=== PATIENT | female | born 1950 | race Caucasian/White ===

== ENCOUNTER 2024-01-26 05:59 | Emergency (ER) | payer MEDICARE, BC ==
[~2024-01-26] VITALS: Ht 154.9 cm; Wt 98.8 kg
[~2024-01-26 05:59] MED LIST: ALEVE220 MG PO; ASPIRIN EC325 MG PO; ATENOLOL-CHLOR1 EACH PO; ATENOLOL25 MG PO; CLONAZEPAM0.5 M1 SL; DILAUDID4 MG PO; MIRAPEX0.5 MG PO; OXYCODONE HCL E10 MG PO
[2024-01-26] MEDS ORDERED: PHENTERMINE H37.5 M1 PO (06:10)
[2024-01-26] MEDS ORDERED: GABAPENTIN400 MG PO (06:10)
[2024-01-26] MEDS ORDERED: METFORMIN HCL500 M1 PO (06:10)
[2024-01-26] MEDS ORDERED: PROPRANOLOL HCL20 MG PO ×2 (06:10→07:18)
[2024-01-26 06:19] LABS: BASOPHILS 0.3 % (0-2); EOSINOPHILS 3.1 % (0-6); HEMATOCRIT 40.2 % (35.0-50.0); LYMPHOCYTES 11.9 % (24-44); MCH 32.6 (27-36); MCHC 34.9 g/dl (30-36); MCV 93.3 fl (81-99); NEUTROPHILS 74.7 % (39-80); PLATELET COUNT 90 K/uL (140-440); RBC 4.31 M/ul (4.3-5.7); RDW 13.8 (10.5-15.0)
[2024-01-26] MEDS ORDERED: METOPROLOL TARTRATE 5 MG/5 ML VIAL IV ONE (06:30)
[2024-01-26 06:44] LABS: ALBUMIN 3.5 g/dL (3.4-5.0); ALBUMIN/GLOBULIN RATIO 0.83 (1.1-2.4); ANION GAP 15.6 (7-21); BILIRUBIN, TOTAL 1.2 ng/dL (0.2-1.0); BUN/CREATININE RATIO 18.6 (6.0-28.6); CALCIUM 9.2 mg/dL (8.5-10.1); CREATININE, SERUM 0.86 mg/dL (0.55-1.02); MAGNESIUM 1.6 mg/dL (1.8-2.4); POTASSIUM 3.6 mmol/L (3.5-5.1); PROTEIN, TOTAL 7.7 g/dL (6.4-8.2); TSH, 3RD GENERATION 4.962 uIU/mL (0.358-3.740)
[2024-01-26] MEDS ORDERED: PROPRANOLOL HCL 20 MG TAB PO ONE (06:45)
[2024-01-26] MEDS ORDERED: MAGNESIUM SULFATE 2 GM/50 ML BAG IV ONE (07:15)
[2024-01-26 08:17] VITALS: BP 146/91
--- NOTE | 2024-01-27 19:38 | EKG ---
[facility] [address] [place] [address] Signed Sinus tachycardia Otherwise normal ECG When compared with ECG of 21-JAN-2021 09:37, Vent. rate has increased BY 39 BPM Nonspecific T wave abnormality no longer evident in Anterior leads Confirmed by Sukhdeep Ronquillo MD ([id number]) on 01/27/2024 7:38:04 PM Electronically Signed By: SUKHDEEP RONQUILLO MD 01/27/24 193 PATIENT NAME: SURYAGABRIELLETAB TRAN Electrocardiogram DATE OF : 54 PHYSICIAN: SUKHDEEP RONQUILLO MD REPORT #: [id number] REPORT IS CONFIDENTIAL AND NOT TO BE RELEASED WITHOUT AUTHORIZATION
== END 2024-01-26 08:17 | disposition home or self-care (01) ==
LOC: ED 05:59
PROVIDERS: Family Medicine
DX: R00.2 Palpitations (principal); E83.42 Hypomagnesemia; F17.200 Nicotine dependence, unspecified, uncomplicated; Z96.659 Presence of unspecified artificial knee joint; Z79.899 Other long term (current) drug therapy; Z79.84 Long term (current) use of oral hypoglycemic drugs
CPT/HCPCS: 36415; 80053; 83735; 84443; 84484; 85025; 93005; 93010; 96365; 99285-25; J3475

== ENCOUNTER 2024-09-11 11:45 | Emergency (ER) | payer MEDICARE, BC ==
[~2024-09-11] VITALS: Ht 154.9 cm; Wt 98.0 kg
--- NOTE | ~2024-09-11 | EKG ---
[facility] [address] [facility] [place], [place] [address] Draft EK completed, results pending confirmation PATIENT NAME: GABRIELLE LONDON Electrocardiogram DATE OF : 54 PHYSICIAN: PRELIMINARY REPORT #: [id number] REPORT IS CONFIDENTIAL AND NOT TO BE RELEASED WITHOUT AUTHORIZATION
[~2024-09-11 11:45] MED LIST changes: +GABAPENTIN400 MG PO; +METFORMIN HCL500 M1 PO; +PHENTERMINE H37.5 M1 PO; +PROPRANOLOL HCL20 MG PO
[2024-09-11] MEDS ORDERED: ALBUTEROL/IPRATROPIUM 3 ML NEB INH PRN (12:00)
[2024-09-11 12:10] LABS: BASOPHILS 1.1 % (0.1-1.2); EOSINOPHILS 2.7 % (0.7-5.8); LYMPHOCYTES 9.2 % (19.3-51.7); MCH 31.0 PG (25.6-32.2); MCHC 33.9 g/dL (32.2-35.5); MCV 91.4 fL (79.4-94.8); MONOCYTES 8.0 % (4.7-12.5); NEUTROPHILS 78.1 % (34.0-71.1); RBC 4.29 M/uL (3.93-5.22)
[2024-09-11] MEDS ORDERED: TYLENOL EXTRA500 MG PO (12:27)
[2024-09-11 12:34] LABS: ALT (SGPT) 25.0 U/L (14-59); AST (SGOT) 34.0 U/L (15-37); GLOMERULAR FILTRATION RATE,EST 85.0 mL/min (>60); PROTEIN, TOTAL 7.4 g/dL (6.4-8.2); UREA NITROGEN 16.0 mg/dL (7-18)
[2024-09-11 14:42] VITALS: BP 123/70
--- NOTE | 2024-09-12 20:27 | EKG ---
[facility] [address] [place] [address] Signed Sinus bradycardia Otherwise normal ECG When compared with ECG of 26-JAN-2024 06:09, Vent. rate has decreased Confirmed by Luis Galvez MD () on 09/12/2024 8:27:23 PM Electronically Signed By: LUIS GALVEZ MD 09/12/242026 PATIENT NAME: GABRIELLE LONDON Electrocardiogram DATE OF : 54 PHYSICIAN: LUIS GALVEZ MD REPORT #: [id number] REPORT IS CONFIDENTIAL AND NOT TO BE RELEASED WITHOUT AUTHORIZATION
== END 2024-09-11 14:44 | disposition home or self-care (01) ==
LOC: ED 11:45
PROVIDERS: Emergency Medicine
DX: J90 Pleural effusion, not elsewhere classified (principal); F17.200 Nicotine dependence, unspecified, uncomplicated; Z79.84 Long term (current) use of oral hypoglycemic drugs; Z79.899 Other long term (current) drug therapy; Z88.8 Allergy status to other drugs, medicaments and biological substances
CPT/HCPCS: 36415; 71045; 80053; 83735; 83880; 84484; 85025; 93005; 93010; 94640; 99285-25

== ENCOUNTER 2024-10-09 17:52 | Emergency (ER) | payer MEDICARE, BC ==
[~2024-10-09] VITALS: Ht 154.9 cm; Wt 88.0 kg
[~2024-10-09 17:52] MED LIST changes: +ARTHRITIS PAIN650 M3 PO; +PRAMIPEXOLE DI0.5 MG PO; +VENTOLIN HFA18 GM INH
--- OUTSIDE RECORDS SUMMARY | 2024-10-09 17:59 | XMS ---
PreManage Notification: GABRIELLE LONDON Security Adapted Physical Education Aide Events No recent Security Events currently on file CRITERIA MET - [facility] - 2 Visits in 30 Days CARE PROVIDERS MARIA INES CHUN Internal Medicine Current PHONE: [phone] Wendy has no Care Guidelines for this patient. Dana VISIT COUNT (12 MO.) 4 [facility] TOTAL 4 NOTE: Visits indicate total known visits. ED/UCC VISIT TRACKING (12 MO.) 10/09/2024 17:52 [facility] TYPE: Emergency COMPLAINT: - SOB 09/25/2024 10:41 [facility] TYPE: Emergency COMPLAINT: - SHORTNESS OF BREATH DIAGNOSES: - Acute bronchospasm - Allergy status to other anti-infective agents - nursing home (current) use of oral hypoglycemic drugs - Nicotine dependence, cigarettes, uncomplicated - Nicotine dependence, unspecified, uncomplicated - Other long term acute care registered nurse (current) drug therapy - Shortness of breath - Unspecified cirrhosis of liver 09/11/2024 11:46 [facility] TYPE: Emergency COMPLAINT: - SHORTNESS OF BREATH DIAGNOSES: - Allergy status to other drugs, medicaments and biological substances - nursing home (current) use of oral hypoglycemic drugs - Nicotine dependence, unspecified, uncomplicated - Other snf (current) drug therapy - Pleural effusion, not elsewhere classified - Shortness of breath 01/26/2024 06:00 [facility] TYPE: Emergency COMPLAINT: - HEART RATE ISSUES DIAGNOSES: - Hypomagnesemia - nursing home (current) use of oral hypoglycemic drugs - Nicotine dependence, unspecified, uncomplicated - Other long term acute care registered nurse (current) drug therapy - Palpitations - Presence of unspecified artificial knee joint INPATIENT VISIT TRACKING (12 MO.) No inpatient visits to display in this time frame [email or web address]
[2024-10-09 18:30] VITALS: BP 152/100
== END 2024-10-09 18:52 | disposition home or self-care (01) ==
LOC: ED 17:52
DX: J90 Pleural effusion, not elsewhere classified (principal); F17.200 Nicotine dependence, unspecified, uncomplicated; Z79.84 Long term (current) use of oral hypoglycemic drugs; Z88.8 Allergy status to other drugs, medicaments and biological substances
CPT/HCPCS: 71045; 99284-25

== ENCOUNTER 2024-10-11 12:05 | Inpatient (IN) | payer MEDICARE, BC ==
[2024-10-11] VITALS (11 sets, daily range): BP systolic 86–122; BP diastolic 55–88
[~2024-10-11] VITALS: Ht 154.9 cm; Wt 94.5 kg
--- OUTSIDE RECORDS SUMMARY | 2024-10-11 12:10 | XMS ---
PreManage Notification: GABRIELLE LONDON Security Certified Adapted Physical Educator Events No recent Security Events currently on file CRITERIA MET - [facility] - 2 Visits in 30 Days CARE PROVIDERS MARIA INES CHUN Internal Medicine Current PHONE: [phone] Wendy has no Care Guidelines for this patient. Dana VISIT COUNT (12 MO.) 5 [facility] TOTAL 5 NOTE: Visits indicate total known visits. 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 - Nicotine dependence, cigarettes, uncomplicated - Nicotine dependence, unspecified, uncomplicated - Other fdc (current) drug therapy - Shortness of breath - Unspecified cirrhosis of liver 09/11/2024 11:46 [facility] TYPE: Emergency COMPLAINT: - SHORTNESS OF BREATH DIAGNOSES: - Allergy status to other drugs, medicaments and biological substances - prison (current) use of oral hypoglycemic drugs - Nicotine dependence, unspecified, uncomplicated - Other intermission coordinator (current) drug therapy - Pleural effusion, not elsewhere classified - Shortness of breath 01/26/2024 06:00 [facility] TYPE: Emergency COMPLAINT: - HEART RATE ISSUES DIAGNOSES: - Hypomagnesemia - prison (current) use of oral hypoglycemic drugs - Nicotine dependence, unspecified, uncomplicated - Other intermission coordinator (current) drug therapy - Palpitations - Presence of unspecified artificial knee joint INPATIENT VISIT TRACKING (12 MO.) No inpatient visits to display in this time frame [email or web address]
[2024-10-11 12:27] LABS: BASOPHILS 0.8 % (0.1-1.2); EOSINOPHILS 1.4 % (0.7-5.8); LYMPHOCYTES 9.4 % (19.3-51.7); MCH 31.2 PG (25.6-32.2); MCHC 34.9 g/dL (32.2-35.5); MCV 89.4 fL (79.4-94.8); MONOCYTES 9.3 % (4.7-12.5); NEUTROPHILS 78.7 % (34.0-71.1); RBC 4.81 M/uL (3.93-5.22)
[2024-10-11 12:39] LABS: INR 1.14 (0.80-1.30); PROTIME 14.1 Sec (11.2-14.2)
[2024-10-11 12:52] LABS: ALT (SGPT) 27.0 U/L (14-59); AST (SGOT) 37.0 U/L (15-37); GLOMERULAR FILTRATION RATE,EST 96.0 mL/min (>60); PROTEIN, TOTAL 7.3 g/dL (6.4-8.2); UREA NITROGEN 18.0 mg/dL (7-18)
[2024-10-11] MEDS ORDERED: PRAMIPEXOLE DIHYDROCHLORIDE 1 MG TAB PO ONE (16:00)
[2024-10-11] MEDS ORDERED: PRAMIPEXOLE DIHYDROCHLORIDE 0.25 MG TAB PO ONE (16:15)
[2024-10-11] MEDS ORDERED: GLUCAGON,HUMAN RECOMBINANT 1 MG/ML VIAL SUB-Q PRN (16:30)
[2024-10-11] MEDS ORDERED: DEXTROSE 5% 1,000 ML IV PRN (16:30)
[2024-10-11] MEDS ORDERED: DEXTROSE 50% 50 ML SYR IV PRN ×2 (16:30)
[2024-10-11] MEDS ORDERED: SODIUM CHLORIDE 0.9% 1,000 ML IV SCH (16:30)
[2024-10-11] MEDS ORDERED: IBLOOD GLUCOSE TEST STRIP 1 EA TEST XX PRN (16:30)
[2024-10-11] MEDS ORDERED: ACETAMINOPHEN 325 MG TAB PO PRN (16:30)
[2024-10-11] MEDS ORDERED: INSULIN LISPRO 100 UNIT/ML ML SUB-Q SCH (17:00)
[2024-10-11] MEDS ORDERED: IBLOOD GLUCOSE TEST STRIP 1 EA TEST VI SCH (17:00)
[2024-10-11] MEDS ORDERED: BUDESONIDE 0.5 MG/2 ML VIAL INH SCH (20:00)
[2024-10-11] MEDS ORDERED: ALBUTEROL/IPRATROPIUM 3 ML NEB INH SCH (20:00)
[2024-10-11] MEDS ORDERED: AZITHROMYCIN 500 MG in DEXTROSE 5% 250 ML IV SCH (21:00)
[2024-10-11] MEDS ORDERED: PRAMIPEXOLE DIHYDROCHLORIDE 1 MG TAB PO SCH (21:00)
[2024-10-12] VITALS (15 sets, daily range): BP systolic 87–128; BP diastolic 56–85
[2024-10-12 05:24] LABS: BASOPHILS 0.5 % (0.1-1.2); EOSINOPHILS 0.2 % (0.7-5.8); LYMPHOCYTES 7.4 % (19.3-51.7); MCH 31.3 PG (25.6-32.2); MCHC 34.6 g/dL (32.2-35.5); MCV 90.4 fL (79.4-94.8); MONOCYTES 5.1 % (4.7-12.5); NEUTROPHILS 86.3 % (34.0-71.1); RBC 4.38 M/uL (3.93-5.22)
[2024-10-12 05:43] LABS: ALT (SGPT) 27.0 U/L (14-59); AST (SGOT) 31.0 U/L (15-37); GLOMERULAR FILTRATION RATE,EST 94.0 mL/min (>60); PHOSPHORUS, INORGANIC 3.5 mg/dL (2.5-4.9); PROTEIN, TOTAL 6.5 g/dL (6.4-8.2); UREA NITROGEN 25.0 mg/dL (7-18)
[2024-10-12] MEDS ORDERED: ENOXAPARIN SODIUM 40 MG/0.4 ML SYR SUB-Q SCH (09:00)
[2024-10-12] MEDS ORDERED: GABAPENTIN 400 MG CAP PO SCH (09:00)
[2024-10-12] MEDS ORDERED: MAGNESIUM SULFATE 2 GM/50 ML BAG IV ONE (10:30)
[2024-10-12] MEDS ORDERED: POTASSIUM CHLORIDE 10 MEQ TABCR PO ONE (10:30)
[2024-10-12] MEDS ORDERED: POTASSIUM CHLORIDE 20 MEQ/15 ML CUP PO ONE (11:30)
[2024-10-12] MEDS ORDERED: PHARMACY RENAL DOSE ADJUSTMENT 1 DOSE MISC PO SCH (12:00)
[2024-10-12] MEDS ORDERED: SODIUM CHLORIDE 0.9% 1,000 ML IV SCH (20:45)
--- NOTE | 2024-10-12 23:04 | EKG ---
[facility] [address] [place] [address] Signed Atrial fibrillation with rapid ventricular response Possible Anterior infarct , age undetermined Abnormal ECG When compared with ECG of 25-SEP-2024 10:51, Atrial fibrillation has replaced Sinus rhythm Vent. rate has increased BY 79 BPM Inverted T waves have replaced nonspecific T wave abnormality in Inferior leads Confirmed by Luis Galvez MD () on 10/12/2024 11:04:07 PM Electronically Signed By: LUIS GALVEZ MD 10/12/24 2304 PATIENT NAME: GABRIELLE LONDON Electrocardiogram DATE OF : 54 PHYSICIAN: LUIS GALVEZ MD REPORT #: [id number] REPORT IS CONFIDENTIAL AND NOT TO BE RELEASED WITHOUT AUTHORIZATION
[2024-10-13] VITALS (17 sets, daily range): BP systolic 87–143; BP diastolic 64–113
[2024-10-13] MEDS ORDERED: ALBUTEROL SULFATE 0.083% 3 ML VIAL INH PRN (04:30)
[2024-10-13] MEDS ORDERED: ALBUTEROL SULFATE 0.083% 3 ML VIAL ONE (04:31)
[2024-10-13 05:21] LABS: BASOPHILS 0.9 % (0.1-1.2); EOSINOPHILS 2.0 % (0.7-5.8); LYMPHOCYTES 12.6 % (19.3-51.7); MCH 31.7 PG (25.6-32.2); MCHC 34.9 g/dL (32.2-35.5); MCV 90.7 fL (79.4-94.8); MONOCYTES 11.2 % (4.7-12.5); NEUTROPHILS 72.7 % (34.0-71.1); RBC 3.98 M/uL (3.93-5.22)
[2024-10-13 05:37] LABS: ALT (SGPT) 21.0 U/L (14-59); AST (SGOT) 36.0 U/L (15-37); GLOMERULAR FILTRATION RATE,EST 95.0 mL/min (>60); PROTEIN, TOTAL 6.2 g/dL (6.4-8.2); UREA NITROGEN 27.0 mg/dL (7-18)
[2024-10-13] MEDS ORDERED: guaiFENesin 600 MG TABCR PO PRN (09:30)
[2024-10-13] MEDS ORDERED: NYSTATIN CREAM 30 GM TUBE TOP SCH (15:00)
[2024-10-14] VITALS (25 sets, daily range): BP systolic 85–146; BP diastolic 63–117
[2024-10-14 05:31] LABS: BASOPHILS 0.6 % (0.1-1.2); EOSINOPHILS 0.6 % (0.7-5.8); LYMPHOCYTES 7.5 % (19.3-51.7); MCH 31.2 PG (25.6-32.2); MCHC 34.6 g/dL (32.2-35.5); MCV 90.1 fL (79.4-94.8); MONOCYTES 7.4 % (4.7-12.5); NEUTROPHILS 83.2 % (34.0-71.1); RBC 4.04 M/uL (3.93-5.22)
[2024-10-14 05:48] LABS: ALT (SGPT) 23.0 U/L (14-59); AST (SGOT) 34.0 U/L (15-37); GLOMERULAR FILTRATION RATE,EST 98.0 mL/min (>60); PROTEIN, TOTAL 6.4 g/dL (6.4-8.2); UREA NITROGEN 22.0 mg/dL (7-18)
[2024-10-14] MEDS ORDERED: HAIR, SKIN & N1 EACH PO (11:41)
--- NOTE | 2024-10-14 14:07 | EKG ---
[facility] [address] [facility] [place] [address] Signed Atrial fibrillation with rapid ventricular response ST \T\ T wave abnormality, consider inferior ischemia Abnormal ECG When compared with ECG of 11-OCT-2024 12:11, Nonspecific T wave abnormality, worse in Lateral leads Confirmed by Luis Galvez MD () on 10/14/2024 2:06:52 PM Electronically Signed By: LUIS GALVEZ MD 10/14/24 1407 PATIENT NAME: GABRIELLE LONDON Electrocardiogram DATE OF : 54 PHYSICIAN: LUIS GALVEZ MD REPORT #: [id number] REPORT IS CONFIDENTIAL AND NOT TO BE RELEASED WITHOUT AUTHORIZATION
[2024-10-14] MEDS ORDERED: ALPRAZolam 0.5 MG TAB PO PRN (19:00)
[2024-10-15] VITALS (15 sets, daily range): BP systolic 96–146; BP diastolic 60–95
[2024-10-15 05:44] LABS: BASOPHILS 1.2 % (0.1-1.2); EOSINOPHILS 2.5 % (0.7-5.8); LYMPHOCYTES 7.6 % (19.3-51.7); MCH 31.5 PG (25.6-32.2); MCHC 34.7 g/dL (32.2-35.5); MCV 90.6 fL (79.4-94.8); MONOCYTES 10.1 % (4.7-12.5); NEUTROPHILS 77.9 % (34.0-71.1); RBC 3.72 M/uL (3.93-5.22)
[2024-10-15 06:01] LABS: ALT (SGPT) 25.0 U/L (14-59); AST (SGOT) 34.0 U/L (15-37); GLOMERULAR FILTRATION RATE,EST 102.0 mL/min (>60); PROTEIN, TOTAL 5.9 g/dL (6.4-8.2); UREA NITROGEN 19.0 mg/dL (7-18)
[2024-10-15] MEDS ORDERED: ALBUTEROL/IPRATROPIUM 3 ML NEB INH SCH (20:00)
[2024-10-15] MEDS ORDERED: METOPROLOL SUCCINATE 25 MG TABCR PO ONE (21:15)
[2024-10-16] VITALS (9 sets, daily range): BP systolic 100–138; BP diastolic 62–85
[2024-10-16 05:57] LABS: BASOPHILS 0.6 % (0.1-1.2); EOSINOPHILS 1.7 % (0.7-5.8); LYMPHOCYTES 6.0 % (19.3-51.7); MCH 31.2 PG (25.6-32.2); MCHC 34.2 g/dL (32.2-35.5); MCV 91.3 fL (79.4-94.8); MONOCYTES 7.6 % (4.7-12.5); NEUTROPHILS 83.5 % (34.0-71.1); RBC 3.91 M/uL (3.93-5.22)
[2024-10-16 06:14] LABS: ALT (SGPT) 33.0 U/L (14-59); AST (SGOT) 39.0 U/L (15-37); GLOMERULAR FILTRATION RATE,EST 96.0 mL/min (>60); PROTEIN, TOTAL 6.1 g/dL (6.4-8.2); UREA NITROGEN 20.0 mg/dL (7-18)
[2024-10-16] MEDS ORDERED: METOPROLOL SUCC25 MG PO (10:33)
[2024-10-16] MEDS ORDERED: ALPRAZOLAM0.5 MG PO (10:33)
[2024-10-16] MEDS ORDERED: DILTIAZEM HCL30 MG PO (10:33)
[2024-10-16] MEDS ORDERED: HYDROXYZINE PAM25 MG PO (10:35)
[2024-10-16] MEDS ORDERED: METOPROLOL SUCCINATE 25 MG TABCR PO SCH (21:00)
== END 2024-10-16 13:48 | disposition home health service (06) | DRG 308 ==
LOC: ED 12:05 → CCU 16:40 → MS 16:40 → CCU 10-13 20:51 → MS 10-15 13:10
PROVIDERS: Emergency Medicine; ADMIT Family Medicine; ATTEND Student in an Organized Health Care Education/Training Program
DX: I48.91 Unspecified atrial fibrillation (principal); J18.9 Pneumonia, unspecified organism; C78.02 Secondary malignant neoplasm of left lung; C78.01 Secondary malignant neoplasm of right lung; C77.1 Secondary and unspecified malignant neoplasm of intrathoracic lymph nodes; K76.6 Portal hypertension; E11.9 Type 2 diabetes mellitus without complications; G25.81 Restless legs syndrome; K74.60 Unspecified cirrhosis of liver; E87.6 Hypokalemia; E83.42 Hypomagnesemia; M19.90 Unspecified osteoarthritis, unspecified site; R13.10 Dysphagia, unspecified; F41.9 Anxiety disorder, unspecified; Z87.891 Personal history of nicotine dependence; Z88.1 Allergy status to other antibiotic agents; Z79.84 Long term (current) use of oral hypoglycemic drugs; Z85.05 Personal history of malignant neoplasm of liver; Z92.21 Personal history of antineoplastic chemotherapy
CPT/HCPCS: 36415; 71045; 74177; 80053; 82803; 83735; 83880; 84100; 84443; 84484; 85025; 85610; 87040; 92523; 93005; 93010; 93306; 94640; 94667; 94668; 94760; 94762; 94799; 96374; 96376; 97161; 97166; 97530; 97535; 99285-25; A9270; J0456; J0696; J1650; J1815; J2405; J3475; J7030; J7060; Q0177; Q9967

== ENCOUNTER 2024-10-18 02:12 | Inpatient (IN) | payer MEDICARE, BC ==
[~2024-10-18] VITALS: Ht 154.9 cm; Wt 96.3 kg
[~2024-10-18 02:12] MED LIST changes: +ALPRAZOLAM0.5 MG PO; +DILTIAZEM HCL30 MG PO; +HAIR, SKIN & N1 EACH PO; +HYDROXYZINE PAM25 MG PO; +METOPROLOL SUCC25 MG PO
--- OUTSIDE RECORDS SUMMARY | 2024-10-18 02:14 | XMS ---
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 Dana VISIT COUNT (12 MO.) 6 [facility] TOTAL 6 NOTE: Visits indicate total known visits. 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 - Nicotine dependence, unspecified, uncomplicated - Pleural effusion, not elsewhere classified - Shortness of breath 09/25/2024 10:41 [facility] TYPE: Emergency COMPLAINT: - SHORTNESS OF BREATH DIAGNOSES: - Acute bronchospasm - Allergy status to other anti-infective agents - [employer] customer service (current) use of oral hypoglycemic drugs - Nicotine dependence, cigarettes, uncomplicated - Nicotine dependence, unspecified, uncomplicated - Other senior care (current) drug therapy - Shortness of breath - Unspecified cirrhosis of liver 09/11/2024 11:46 [facility] TYPE: Emergency COMPLAINT: - SHORTNESS OF BREATH DIAGNOSES: - Allergy status to other drugs, medicaments and biological substances - nursing home (current) use of oral hypoglycemic drugs - Nicotine dependence, unspecified, uncomplicated - Other senior care (current) drug therapy - Pleural effusion, not elsewhere classified - Shortness of breath 01/26/2024 06:00 [facility] TYPE: Emergency COMPLAINT: - HEART RATE ISSUES DIAGNOSES: - Hypomagnesemia - [employer] customer service (current) use of oral hypoglycemic drugs - Nicotine dependence, unspecified, uncomplicated - Other senior care (current) drug therapy - Palpitations - Presence of unspecified artificial knee joint INPATIENT VISIT TRACKING (12 MO.) 10/11/2024 16:[address] [facility] [place] TYPE: Medical Surgical COMPLAINT: - ATRIAL FILBRILLATION WITH RVR DIAGNOSES: - Allergy status to other antibiotic agents - Anxiety disorder, unspecified - Dysphagia, unspecified - Hypokalemia - Hypomagnesemia - [employer] customer service (current) use of oral hypoglycemic drugs - Personal history of antineoplastic chemotherapy - Personal history of malignant neoplasm of liver - Personal history of nicotine dependence - Pneumonia, unspecified organism - Portal hypertension - Restless legs syndrome - Secondary and unspecified malignant neoplasm of intrathoracic lymph nodes - Secondary malignant neoplasm of left lung - Secondary malignant neoplasm of right lung - Type 2 diabetes mellitus without complications - Unspecified atrial fibrillation - Unspecified cirrhosis of liver - Unspecified osteoarthritis, unspecified site [email or web address]
[2024-10-18 02:35] LABS: BASOPHILS 1.0 % (0.1-1.2); EOSINOPHILS 3.6 % (0.7-5.8); LYMPHOCYTES 10.5 % (19.3-51.7); MCH 31.3 PG (25.6-32.2); MCHC 33.8 g/dL (32.2-35.5); MCV 92.8 fL (79.4-94.8); MONOCYTES 10.6 % (4.7-12.5); NEUTROPHILS 73.7 % (34.0-71.1); RBC 4.02 M/uL (3.93-5.22)
[2024-10-18] MEDS ORDERED: ALBUTEROL/IPRATROPIUM 3 ML NEB INH ONE (02:45)
[2024-10-18 02:56] LABS: ALT (SGPT) 38.0 U/L (14-59); AST (SGOT) 43.0 U/L (15-37); GLOMERULAR FILTRATION RATE,EST 81.0 mL/min (>60); PROTEIN, TOTAL 6.7 g/dL (6.4-8.2); UREA NITROGEN 21.0 mg/dL (7-18)
[2024-10-18] MEDS ORDERED: FUROSEMIDE 40 MG/4 ML VIAL ONE (03:37)
[2024-10-18] MEDS ORDERED: FUROSEMIDE 40 MG/4 ML VIAL IV ONE (03:45)
[2024-10-18] MEDS ORDERED: PRAMIPEXOLE DIHYDROCHLORIDE 1 MG TAB PO ONE (04:00)
[2024-10-18] MEDS ORDERED: LORazepam 2 MG/ML VIAL IV ONE (04:15)
[2024-10-18 06:40] LABS: BLOOD/HGB, URINE NEGATIVE (Negative); KETONE, URINE TRACE (Negative); LEUK ESTERASE, URINE SMALL (negative); NITRITE, URINE NEGATIVE (negative)
[2024-10-18 06:46] LABS: BACTERIA, URINE 1+ /hpf (negative); CASTS, URINE NONE SEEN \\lpf; CRYSTALS, URINE NONE SEEN (0-1+); EPITHELIAL CELLS, URINE SQUAMOUS 4+ /lpf (0-1+)
[2024-10-18 06:47] LABS: REFLEX CULTURE, URINE No (No)
[2024-10-18] MEDS ORDERED: DEXTROSE 50% 50 ML SYR IV PRN ×2 (13:30)
[2024-10-18] MEDS ORDERED: LACTATED RINGER'S 1,000 ML IV SCH (13:30)
[2024-10-18] MEDS ORDERED: IBLOOD GLUCOSE TEST STRIP 1 EA TEST XX PRN (13:30)
[2024-10-18] MEDS ORDERED: PROCHLORPERAZINE EDISYLATE 10 MG/2 ML VIAL IV PRN (13:30)
[2024-10-18] MEDS ORDERED: GLUCAGON,HUMAN RECOMBINANT 1 MG/ML VIAL SUB-Q PRN (13:30)
[2024-10-18] MEDS ORDERED: ALPRAZolam 0.5 MG TAB PO PRN ×2 (13:30→20:00)
[2024-10-18] MEDS ORDERED: DEXTROSE 5% 1,000 ML IV PRN (13:30)
[2024-10-18] MEDS ORDERED: ACETAMINOPHEN 325 MG TAB PO PRN (13:30)
[2024-10-18] MEDS ORDERED: ALBUTEROL SULFATE 0.083% 3 ML VIAL INH PRN (13:45)
--- NOTE | 2024-10-18 14:40 | NUR ---
PT ARRIVED TO THE MS ROOM 114 VIA STRETCHER. PT WAS ABLE TO MOVE SELF TO BED, PT HAD TROUBLE AND NEEDED ASSISTANCE. PT IS ALERT. PT IS SOB, NEB TX UPON ARRIVAL, USING ACAPELLA. LUNG SOUNDS COURSE RUL/RLL, EXP WHEEZE EDUARDO/LLL. WATER PROVIDED, WARM BLANKET. CALL LIGHT IN REACH.
[2024-10-18 14:42] VITALS: BP 126/66
--- NOTE | 2024-10-18 15:08 | NUR ---
DISCUSSED OPTION OF HOME NEBULIZER. PATIENT BECAME TEARFUL AND STATED SHE MAY NOT BE GOING HOME. I TRIED TO COMFORT HER BY TALKING ABOUT GOD. I ALSO TRIED TO COMFORT HER THAT SHE IS IN A SAFE PLACE AND WE ARE HERE TO TAKE CARE OF HER. 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 HOME REGIMEN OF BROVANA AND/OR DUONEB WITH PULMICORT COULD BE CONSIDERED FOR COMFORT.
[2024-10-18] MEDS ORDERED: ALBUTEROL/IPRATROPIUM 3 ML NEB INH SCH (16:00)
--- NOTE | 2024-10-18 16:00 | NUR ---
Pt readmitted to hospital from home. Pt had a panic attack and felt she could not swallow her anxiety meds. Pt also was sob breath. I had a very long discussion with pt when she discharged 10/13/24 and again in the ER today. Pt has metastatic cancer. She is wanting to see an oncologist to have them tell her her prognosis. Pt and daughter are very tearful. Pt remembers I discussed a POLST form with her on dc and is stating she would like to complete a DNR. DNR completed in the ER. Pt is unable to walk and daughter is concerned about care. Pt has not showered in a week. Pt will admit and plan on dc on to with her son.
--- NOTE | 2024-10-18 16:04 | NUR ---
FAMILY AT BEDSIDE. CALL LIGHT IN REACH
[2024-10-18] MEDS ORDERED: IBLOOD GLUCOSE TEST STRIP 1 EA TEST VI SCH (17:00)
[2024-10-18] MEDS ORDERED: INSULIN LISPRO 100 UNIT/ML ML SUB-Q SCH (17:00)
[2024-10-18 17:39] VITALS: BP 138/81
--- NOTE | 2024-10-18 17:41 | NUR ---
PT AWAKE IN BED, ONCOLOGY RESEARCH RN IN ROOM. FAMILY AT BEDSIDE. CALL LIGHT IN REACH.
--- NOTE | 2024-10-18 17:57 | NUR ---
PT AWAKE IN BED, DAUGHTER AT BEDSIDE. DENIES NEEDS. CALL LIGHT IN REACH
--- NOTE | 2024-10-18 18:09 | NUR ---
MED REC COMPLETE
--- NOTE | 2024-10-18 18:45 | NUR ---
PT LAYING IN BED, TOLERATING JELLO AND USING ACAPELLA.
--- NOTE | 2024-10-18 19:31 | NUR ---
RECEIVED REPORT. PT ALERT IN BED. REFRESHED ICE WATER, NO OTHER NEEDS FOR NOW. CALL LIGHT IN REACH
[2024-10-18] MEDS ORDERED: BUDESONIDE 0.5 MG/2 ML VIAL INH SCH (20:00)
[2024-10-18] MEDS ORDERED: LORazepam 2 MG/ML VIAL IV PRN (20:00)
[2024-10-18] MEDS ORDERED: ARFORMOTEROL TARTRATE 15 MCG/2 ML VIAL INH SCH (20:00)
[2024-10-18 20:36] VITALS: BP 136/70
--- NOTE | 2024-10-18 20:38 | NUR ---
TOWER EQUIPMENT REPAIRER ASSISTED PT FROM BSC TO BED. VITALS AND I&O OBTAINED. PT STATES NO NEEDS AT THIS TIME. CALL LIGHT WITHIN REACH AND BED ALARM ON.
[2024-10-18] MEDS ORDERED: MELATONIN 3 MG TAB PO PRN (21:00)
--- NOTE | 2024-10-18 21:30 | NUR ---
PT REQUESTS MIRAPEX MEDICATION FOR RLS. SHE THINKS SHE MAY BE ABLE TO SWALLOW IT IF CRUSHED WITH APPLE SAUCE. DISCUSSED WITH MD, ORDERED. GIVEN EVENING MEDS. PERFORMED ASSESSMENT, VITALS. REFRESHED ICE WTER. NO OTHER NEEDS FOR NOW, CALL LIGHT INREACH
[2024-10-18] MEDS ORDERED: PRAMIPEXOLE DIHYDROCHLORIDE 0.5 MG TAB PO SCH (21:34)
--- NOTE | 2024-10-18 22:58 | NUR ---
RESPONDED TO BEEPING IV. REPOSITIONED ARM ADN RESTARTED. WRAPPED ARM TO DISCOURACE BENDING. REFRESHED ICE WATER. NO OTHER NEEDS, CALL [facility]
[2024-10-19] VITALS (7 sets, daily range): BP systolic 104–129; BP diastolic 51–77
--- NOTE | 2024-10-19 00:02 | NUR ---
PT VISITING WITH DAUGHTER. NO NEEDS FOR NOW, CALL [facility]
--- NOTE | 2024-10-19 00:16 | NUR ---
RESPONDED TO BEEPING IV. PT ALERT IN BED, C/O NEEDING TO "COUGH SOMETHING UP". GIVEN WARM WATER TO HELP WITH THROAT DISCOMFORT. NO OTHER NEEDS, CALL [facility] INR EACH
--- NOTE | 2024-10-19 00:59 | NUR ---
RESPONDED TO BEEPING IV. PT C/O DIFFICULTY BREATHING AND "LIKE SOMETHING IS CAUGHT IN MY THROAT AND I'M TRYING TO COUGH IT OUT". PT TALKING WITH REGULAR EFFORT AND SPO2 93%. RT PROVIDED BREATHING TX. GIVEN 0.25MG IV ATIVAN. READJUSTED PT HIGHER IN BED AND SUPPORTED WITH PILLOWS. CALL LIGHT IN REACH
--- NOTE | 2024-10-19 01:50 | NUR ---
KITCHEN AND COUNTER WORKER OBTAINED VITALS. NO NEEDS STATED AT THIS TIME. CALL LIGHT WITHIN REACH AND BED ALARM ON.
--- NOTE | 2024-10-19 02:09 | NUR ---
PT REPORTS WORK OF BREATHING EASIER, BUT UNABLE TO SLEEP D/T RESTLESS LEGS. GIVEN MELATONIN AND VISTARIL CRUSEHD IN APPLESAUCE. CALL [facility]
--- NOTE | 2024-10-19 02:51 | NUR ---
PT C/O SEVERELY RESTLESS LEGS, NOT AIDED WITH MIRAPEX, ATIVAN, VISTARIL, OR MELATONIN. ASSISTED PT TO STAND TO SEE IF PROVIDES ANY RELIEF. USED BEDSIDE COMMODE WELL, 1PA FWW. PT BACK IN BED. ADJUSTED IV TUBING TO ALLOW BETTER IV FLOW. CALL LIGHT IN REACH
--- NOTE | 2024-10-19 03:40 | NUR ---
RESPONDED TO BEEPING IV. RESTARTED AFTER REPOSITIONING ARM. PT DROWSY BUT AWAKE. NO NEEDS, CALL LIGHT IN REACH
[2024-10-19 05:17] LABS: BASOPHILS 0.2 % (0.1-1.2); EOSINOPHILS 0 % (0.7-5.8); LYMPHOCYTES 4.3 % (19.3-51.7); MCH 32.0 PG (25.6-32.2); MCHC 34.3 g/dL (32.2-35.5); MCV 93.4 fL (79.4-94.8); MONOCYTES 9.2 % (4.7-12.5); NEUTROPHILS 85.6 % (34.0-71.1); RBC 3.47 M/uL (3.93-5.22)
[2024-10-19 05:35] LABS: ALT (SGPT) 38.0 U/L (14-59); AST (SGOT) 35.0 U/L (15-37); GLOMERULAR FILTRATION RATE,EST 83.0 mL/min (>60); PROTEIN, TOTAL 6.1 g/dL (6.4-8.2); UREA NITROGEN 24.0 mg/dL (7-18)
--- NOTE | 2024-10-19 06:03 | NUR ---
PT C/O SHORTNESS OF BREATH. REQUESTS TO SIT AT EDGE OF BED, FACILITATED OOB WITH TABLE DIRECTLY IN FRONT. REQUESTED RT BREATHING TX. ALSO GIVEN IV ATIVAN. PT SATTING 98% ON RA, BUT PLACED ON 1LNC FOR AIR HUNGER. NO OTHER NEEDS, CALL LIGHT INR EACH
--- NOTE | 2024-10-19 07:16 | NUR ---
PT IS AWAKE IN BED, STATES SHE HAS NOT SLEPT AT ALL. HAS NOT BEEN ABLE TO GET COMFORTABLE. RESTLESS LEGS. DENIES NEEDS AT THIS TIME. CALL LIGHT IN REACH
[2024-10-19] MEDS ORDERED: LORazepam 2 MG/ML VIAL IV PRN (08:45)
--- NOTE | 2024-10-19 09:30 | NUR ---
MORNING ASSESSMENT COMPLETE. PT IS LAYING IN BED, DENIES PAIN, BUT THROAT IRRITATION. DISCUSSED SHOWER AND RECLINER, PT COMPLIANT. DISCUSSED WITH PT IF THERE WAS ANY QUESTIONS AFTER THE DOCTOR HAD LEFT. PT DENIES AT THIS TIME. CALL LIGHT IN REACH.
--- NOTE | 2024-10-19 10:35 | NUR ---
pt is in cierraervalarie and duglas gayle in room to assist pt.
--- NOTE | 2024-10-19 11:16 | NUR ---
PATIENT WAS IN BED AT THIS TIME, NANCY COBIAN AND I GOT PATIENT READY FOR HER SHOWER, GOT HER A WHEELY SHOWER CHAIR, ASSISTED PATIENT IN, I ASSISTED PATIENT WITH BATHING, WASHED HER HAIR, LEGS, BACK AND PRIVATES, AND SHE WASHED HER UPPER HALF THAT SHE COULD REACH. I CLEANED UP ALL THE TOWELS AND WET LINENS. NANCY COBIAN CHANGED PATIENTS BEDDING, I HELPED PATIENT GET DRESSED AND BRUSHED HER HAIR, WE GOT HER BACK INTO HER CHAIR. CALL LIGHT WITH IN REACH AND NOTHING ELSE NEEDED AT THIS TIME.
--- NOTE | 2024-10-19 11:31 | NUR ---
pt resting in chair, resting, eyes open and closing spontaneously. call light in reach
[2024-10-19] MEDS ORDERED: PHARMACY RENAL DOSE ADJUSTMENT 1 DOSE MISC PO SCH (12:00)
[2024-10-19] MEDS ORDERED: ALBUTEROL/IPRATROPIUM 3 ML NEB INH SCH (12:00)
--- NOTE | 2024-10-19 12:47 | NUR ---
PT AWAKE IN RECLINER, DENIES NEEDS. CALL LIGHT IN REACH
--- NOTE | 2024-10-19 12:58 | EKG ---
[facility] [address] [facility] [place] [address] Signed Normal sinus rhythm Nonspecific T wave abnormality Abnormal ECG When compared with ECG of 13-OCT-2024 20:10, Sinus rhythm has replaced Atrial fibrillation Vent. rate has decreased BY 50 BPM Confirmed by Tyrel Gaffney DO ([id number]) on 10/19/2024 12:57:54 PM Electronically Signed By: TYREL GAFFNEY DO 10/19/24 1258 PATIENT NAME: SURYAGABRIELLETAB TRAN Electrocardiogram DATE OF : 54 PHYSICIAN: TYREL GAFFNEY DO REPORT #: [id number] REPORT IS CONFIDENTIAL AND NOT TO BE RELEASED WITHOUT AUTHORIZATION
--- NOTE | 2024-10-19 13:52 | NUR ---
pt awake in recliner, denies needs. call light in reach.
--- NOTE | 2024-10-19 14:21 | NUR ---
PT REQUESTED TO GO LAY IN BED AND TRY TO NAP. PT TRANSFERED 1PA, FWW TOLERATED WELL. CURTAINS CLOSED. CALL LIGHT IN REACH.
--- NOTE | 2024-10-19 15:50 | NUR ---
PT IN BED, THIS RN AND DEANA RT BOOSTED PT IN BED FOR NEB TX. CALL LIGHT IN REACH
--- NOTE | 2024-10-19 17:04 | NUR ---
PT REQUESTING ATIVAN. PT IS ANXIOUS WITH RESTLESS LEGS. FAMILY AT BEDSIDE. CALL LIGHT IN REACH
--- NOTE | 2024-10-19 18:45 | NUR ---
PT AWAKE IN BED, DAUGHTER IS WANTING TO BRING PT HOME MEDS IN DUE TO CONCERNS OF NOT RECIEVING GABEPENTIN. DISCUSSED WITH DAUGHTER THIS RN WILL PASS THAT ON TO COMMUNICATIONS CLERK NURSE IF THIS RN IS OFF SHIFT. PT HAS A VISITOR IN ROOM AT THIS TIME.
--- NOTE | 2024-10-19 19:38 | NUR ---
RECEIVED REPORT. PT ALERT IN BED, EXPRESSES EXHAUSTION AFTER HER RLS DID NOT LET HER SLEEP MUCH LAST NIGHT. [facility]
--- NOTE | 2024-10-19 19:56 | NUR ---
DISCUSSED PT RESTLESS LEGS WITH MD. PT REQUESTING MORE PRAMIPEXOLE (CURRENTLY TAKING 0.75MG.) MD RESTARTED GABAPENTIN 800MG BID. CALL LIGHT IN REACH
--- NOTE | 2024-10-19 20:41 | NUR ---
VITALS, ASSESSMENT, EVENING MEDS. GIVEN MELATONIN TO PROMOTE SLEEP, PT EXPRESSES SHE HAS HARDLY SLEPT AT ALL D/T RESTLESS LEGS. REPLACED IV FLUIDS. REFRESHED ICE WTER. NO OTHER NEEDS FOR NOW, CALL LIGHT IN REACH
[2024-10-19] MEDS ORDERED: GABAPENTIN 400 MG CAP PO SCH (21:00)
--- NOTE | 2024-10-19 21:29 | NUR ---
PT WITH INCREASED WORK OF BREATHING AND SHORTNESS OF BREATH. AUDIBLE WHEEZE RR 24. ASSISTED TO EDGE OF BED WITH SOME RELIEF. DAUGHTER AND SON-IN-LAW IN ROOM EXPRESS CONCERN OVER RESTLESS LEGS AND WORK OF BREATHING. NOTIFIED .
[2024-10-19] MEDS ORDERED: FUROSEMIDE 40 MG/4 ML VIAL IV ONE (21:45)
--- NOTE | 2024-10-19 21:52 | NUR ---
GIVEN IV LASIX 40MG ONCE. DAUGHTER IN ROOM WITH PT. CALL LIGHT IN REACH
--- NOTE | 2024-10-19 22:14 | NUR ---
ADMINISTERED IV LASIX 40MG AND PLACED PUREWICK. ORDER FOR IV BENADRYL 25MG IV PER MD REQUEST.
--- NOTE | 2024-10-19 22:28 | NUR ---
GIVEN IV BENADRYL 25MG IV. ASSISTED PT FROM BED TO RECLINER. CALL LIGHT IN REACH
[2024-10-20] VITALS (8 sets, daily range): BP systolic 94–137; BP diastolic 58–82
--- NOTE | 2024-10-20 00:30 | NUR ---
PT CALLED FOR ASSISTANCE WITH CALL LIGHT, WHEN THIS RN WENT INTO ROOM, PATIENT WAS FOUND KNEELING ON THE FLOOR IN FRONT OF RECLINED RECLINER WITH ARMS ON SEAT. PT INCONTINENT OF URINE, PUREWICK LYING ON FLOOR. SAMUEL LIFT USED TO PLACE PATIENT IN BED. PT DENIES INJURY, PAIN, LOC, HITTING HEAD, NO BRUISING OR VISIBLE INJURIES NOTED. SEE PRIMARY RN NOTE FOR ADDITIONAL DETAILS.
--- NOTE | 2024-10-20 01:02 | NUR ---
PT FALL FROM CHAIR TO FLOOR AT 0030, NOTIFIED BY FAMILY PHYSICIAN. ENTERED ROOM TO FIND PT KNEELING ON FLOOR BY RECLINER WITH 2 RNS ATTEMPTING TO HELP PT STAND. PT NOT ABLE TO STAND WITH ASSISTANCE, SAT PT DIRECTLY ON FLOOR, THEN TRANSFERRED TO BED WITH SAMUEL LIFT. PT DENIES HITTING HEAD OR OTHER INJURY. VITALS STABLE. HEAD-TO-TOE SKIN ASSESSMENT AND NEURO ASSESSMENT WITH NO NEW FINDINGS. PT SLEEPY, BUT ALERT AND ORIENTED. DEMARCUSRKEKE. NOTIFIED MD AND FAMILY. PT REPORTS THAT SHE WAS IN RECLINER WITH PUREWICK IN PLACE WITH CALL LIGHT IN REACH. SHE HAD URINATED ON FLOOR AND LEANED OVER TO CLEAN IT UP, BUT THEN BEGAN TO SLIP FROM CHAIR. SHE USED THE CALL LIGHT TO CALL FOR ASSISTANCE AND THEN RENUKA YUSUF RN AND FAM MCKEON ENTERED ROOM. PT NOW IN BED WITH BED ALARM ACTIVE, SIDE RAILS UP, AND CALL LIGHT IN REACH. FALL MATTS IN PLACE, HIGH-RISK FALL SIGN ON DOOR AND YELLOW WRISTBAND ON.
--- NOTE | 2024-10-20 03:08 | NUR ---
PT RESTING IN BED WITH EYES CLOSED, RISE AND FALL OF CHEST OBSERVED. CALL LIGHT IN REACH
--- NOTE | 2024-10-20 03:49 | NUR ---
PT RESTING IN BED WITH EYES CLOSED, RISE AND FALL OF CHEST OBSERVED, CALL LIGHT IN REACH
--- NOTE | 2024-10-20 05:17 | NUR ---
PT RESTING IN BED WITH EYES CLOSED, RISE AND FALL OF CHEST OBSERVED. CALL LIGHT IN REACH
--- NOTE | 2024-10-20 06:22 | NUR ---
VITALS, AM ASSESSMENT, GIVEN IV ATIVAN 0.5MG FOR ANXIETY/SOB. NOTIFIED RT REQUESTING BREATHING TREATMENT. REPOSITIONED PT HIGHER IN BED. WOB MILDLY INCREASED WITH THESE INTERVENTIONS. CALL LIGHT IN REACH,B ED ALARM ACTIVE, FALL MATTS IN PLACE.
--- NOTE | 2024-10-20 07:10 | NUR ---
recieved shift report. pt is resting in bed, eyes closed, breathing even and unlabored, tachypnic.
--- NOTE | 2024-10-20 08:10 | NUR ---
PT RESTING IN BED, EYES CLOSED, RECIEVING BREATHING TX. PT IS DROWSY DURING INTERVENTIONS, REMAINED SLEEPING. FALL PRECAUTIONS IN PLACE. CALL LIGHT IN REACH, BED ALARM ON FOR PT PT SAFETY.
--- NOTE | 2024-10-20 09:15 | NUR ---
PT REMAINS ASLEEP, BREATHING UNLABORED. CALL LIGHT IN REACH.
--- NOTE | 2024-10-20 11:06 | NUR ---
MORNING ASSESSMENT COMPLETE. PT IS DROWSY THIS AM. WAS ABLE TO AROUSE PT FOR MORNING MEDICATIONS, BUT WAS IN AND OUT OF SLEEP. PT DID NOT EAT BREAKFAST. PT HAS AN AUDIBLE WHEEZE AND EXP WHEEZE/COURSE THROUGHOUT. ATTEMPTED TO USE ACAPELLA, BUT PT WAS TOO TIRED TO BRING TO MOUTH TO USE. RT CALLED FOR A PRN NEB TX. FALL PRECAUTIONS IN PLACE. CALL LIGHT IN REACH
--- NOTE | 2024-10-20 12:59 | NUR ---
PT ASLEEP, AROUSABLE. ASKED IF PT WAS HUNGRY DUE TO LUNCH AT THE BEDSIDE. PT SAID SHE WAS NOT HUNGRY AT THIS TIME. FALL PRECAUTIONS IN PLACE.
--- NOTE | 2024-10-20 14:06 | NUR ---
PATIENT UP IN BED AWAKE. RT IN THE ROOM GIVING PATIENT A BREATHING TREATMENT. PATIENT RECIVES ICE CHIPS PER REQUEST. PATIENT REFUSED LUNCH. NO FURTHER REQUESTS AT THIS TIME. CALL LIGHT IN REACH.
--- NOTE | 2024-10-20 15:20 | NUR ---
PATIENT RESTING IN BED AWAKE. FAMILY IN THE ROOM. NO REQUESTS AT THE MOMENT. CALL LIGHT IN REACH.
--- NOTE | 2024-10-20 16:38 | NUR ---
PATIENT AWAKE IN BED TALKING TO FAMILY. NO REQUESTS AT THIS TIME. CALL LIGHT IN REACH.
--- NOTE | 2024-10-20 18:53 | NUR ---
PATIENT UP IN CHAIR AWAKE, FAMILY IN THE ROOM. NO REQUESTS AT THE TIME CALL LIGHT IN REACH.
--- NOTE | 2024-10-20 19:16 | NUR ---
FAMILY SPOKE TO DR FRANCISCO AND SPOKE ABOUT MEAL OPTIONS. NOLAN STATED NO RESTRICTIONS. BLOOD SUGARS BEING CHECKED, WNL.
--- NOTE | 2024-10-20 19:21 | NUR ---
REPORT RECEIVED FROM DAY SHIFT RN. PT SITTING IN RECLINER ALERT AND ORIENTED. VISITORS IN ROOM. PT DENIES NEEDS. WHITE BOARD UPDATED. CALL LIGHT IN REACH.
--- NOTE | 2024-10-20 21:18 | NUR ---
EVENING ASSESSMENT COMPLETE. SCHEDULED MEDS ADMIN CRUSHED IN APPLESAUCE. DIFFICULTY SWALLOWING NOTED. SBA BACK TO BED. PT STTAES "I FEEL LIKE I CAN'T BREATHE" AFTER MOVEMENT. SpO2 94% ON RA. HR 90'S. FAN PROVIDED FOR COMFORT. HOB ELEVATED. FAMILY REMAINS IN ROOM. PT DENIES QUESTIONS OR CONCERNS. CALL LIGHT IN REACH.
--- NOTE | 2024-10-20 23:35 | NUR ---
PT RESTING IN BED WITH EYES CLOSED. RESIPIRATIONS EVEN. CALL LIGHT IN REACH.
--- NOTE | 2024-10-21 03:21 | NUR ---
PT RESTING WITH EYES CLOSED. RESPIRATIONS EVEN. SpO2 92%. HR 80'S. BED ALARM FOR SAFETY. CALL LIGHT IN REACH.
[2024-10-21 05:17] VITALS: BP 123/66
--- NOTE | 2024-10-21 05:56 | NUR ---
PT AWAKE IN BED. VS OBTAINED. PT DENIES THE NEED TO VOID. BLADDER SCANNED FOR 59 MLS. PT REPORTS ANXIETY, DIFFICULTY BREATHING, AND SWALLOWING. SpO2 LOW 90'S WITH 1L/NC. HR 80-90'S. RT CALLED FOR BREATHING TX. HOB ELEVATED. PT ABLE TO TAKE A FEW ICE CHIPS. NO FURTHER NEEDS. CALL LIGHT IN REACH.
--- NOTE | 2024-10-21 06:29 | NUR ---
UPDATED ON ANXIETY AND NO URINE OUTPUT. NEW TELEPHONE ORDERS RECEIVED VERIFIED WITH READBACK METHOD.
--- NOTE | 2024-10-21 06:45 | NUR ---
ANXIOUS, REASSURED, BENADRYL 25MG IV GIVEN. REPOSITIONED IN BED HOB ELEVATED TO COMFORT
--- NOTE | 2024-10-21 07:15 | NUR ---
PT AWAKE IN BED, RESTLESS, DIF BREATHING, BOOSTED IN BED, PLACED INTO A SITTING POSITION. PT HAS AN AUDIBLE WHEEZE, UNABLE TO MAKE FULL SENTENCES WITHOUT NEEDING TO STOP TO BREATHING. PT REMAINS ON 2LNC PLACED ON NOC SHIFT, SPO2 94%. PT UPSET BREATHING TX ARE OFFERED THAT ARE NOT HELPING. BED ALARM ON, CALL LIGHT IN REACH. NO NEEDS AT THIS.
--- NOTE | 2024-10-21 07:45 | NUR ---
DEANA, NOTIFIES THIS RN THAT PT HR IN THE 130S. NOTIFIED. NO NEW ORDERS.
--- NOTE | 2024-10-21 07:53 | NUR ---
PT CPOX READING 140S. THIS PLACED WALL MONITOR, SPO2 109. IRREGULAR HR. PT JUST REPEATS, I AM DYING.
--- NOTE | 2024-10-21 07:56 | NUR ---
FAMILY IN ROOM AT THIS TIME.
--- NOTE | 2024-10-21 08:28 | NUR ---
NOLAN IN ROOM DISCUSSING POC WITH SON. VERBAL ORDER TO ORDER MORPHINE IV.
[2024-10-21] MEDS ORDERED: MORPHINE SULFATE 4 MG/ML VIAL IV ONE (08:30)
[2024-10-21 09:30] VITALS: BP 108/65
--- NOTE | 2024-10-21 09:42 | NUR ---
PT IS RESTING, MORE CALM, ABLE TO TAKE MEDICATIONS. NO NEEDS AT THIS TIME. CALL LIGHT IN REACH
[2024-10-21 10:40] VITALS: BP 108/65
--- NOTE | 2024-10-21 11:15 | NUR ---
PT AWAKE IN BED, VISITOR AT BEDSIDE. CALL LIGHT IN REACH
--- NOTE | 2024-10-21 12:20 | NUR ---
PT IS AWAKE IN BED, VISITORS AT BEDSIDE. DAUGHTER HERE NOW. CALL LIGHT IN REACH. DENIES NEEDS AT THIS TIME.
--- NOTE | 2024-10-21 13:11 | NUR ---
HOURLY ROUNDING. PATIENT USED THE BATHROOM, ML HAS BEEN DOCUMENTED ON THE BOARD, WIPE DOWN WAS GIVEN AND LINENS HAVE BEEN CHANGED, CALL LIGHT PLACED WITHIN REACH, NURSE NOTIFIED
[2024-10-21 13:12] VITALS: BP 133/80
[2024-10-21 13:20] VITALS: BP 133/80
--- NOTE | 2024-10-21 13:30 | NUR ---
DR FRANCISCO CALLED DUE TO DAUGHTER HAVING CONCERNS OF PT NOT EATING AND FLUIDS BEING STOPPED. ASKED NOLAN TO COME AND TALK TO PT SON AND DAUGHTER WHILE EVERYONE IS TOGETHER. NOLAN DISCUSSED WITH FAMILY THE POC AND FAMILY WILL TALK TO PT.
[2024-10-21] MEDS ORDERED: MORPHINE SULFATE 4 MG/ML VIAL IV PRN (14:00)
--- NOTE | 2024-10-21 14:00 | NUR ---
MONSE, [facility] CALLED TO COME AND TALK TO FAMILY AND PATIENT
--- NOTE | 2024-10-21 14:59 | NUR ---
PT AWAKE IN BED, FAMILY AT BEDSIDE. call light in reach
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
[2024-10-21] MEDS ORDERED: LORazepam 2 MG/ML VIAL IV PRN (15:45)
--- NOTE | 2024-10-21 16:10 | NUR ---
PT IS ANXIOUS, SAYING "I CANT BREATHE". AGREED TO ATIVAN. DEANA FROM [facility] CALLED. FAMILY AT BEDSIDE. CALL LIGHT IN REACH.
--- NOTE | 2024-10-21 18:13 | NUR ---
PATIENT SPILT COFFEE ON SELF. LINEN CHANGE PERFROMED. THIS RN AND NANCY SKINNER GOT PATIENT UP TO COMMODE. PATIENT VOIDED 50 ML OF URINE. PATIENT TRANSFERED BACK TO BED 2 PA. WATER GIVEN AND ICE CHIPS PER PATIENT REQUEST. FALL PRECAUTIONS IN PLACE FOR PATIENT SAFETY. NO FURTHER REQUESTS AT THIS TIME. CALL LIGHT IN REACH.
[2024-10-21] MEDS ORDERED: ARTIFICIAL TEARS 15 ML BTL OU PRN (18:15)
[2024-10-21] MEDS ORDERED: ATROPINE SULFATE 1% OPTH DROPS SL PRN (18:15)
--- NOTE | 2024-10-21 18:25 | NUR ---
PT STATES SHE IS FEELING SOB, MEDICATION ADMINSITERE (PER EMAR). PT REPOSITIONED AT THIS TIME. CALL LIGHT IN REACH. BED ALARM ON FOR PT SAFETY.
--- NOTE | 2024-10-21 19:30 | NUR ---
REPORT RECEIVED FROM DAY SHIFT RN. PT LYING IN BED RESTING WITH EYES CLOSED. RESPIRATIONS EVEN. CALL LIGHT IN REACH. WHITE BOARD UPDATED. BED ALARM FOR SAFETY.
--- NOTE | 2024-10-21 21:36 | NUR ---
FAMILY TO NURSES STATION. VERFIED PHONE NUMBERS, DAUGHTER LEVI NOT RECIEVING CALLS FROM HOSPITAL. CORRECT PHONE NUMBER UPDATED IN CHART. SON WILL AND DIL DAVID'S NUMBERS VERIFIED AND PLACED ON CHART. DAVID [phone]. WOULD LIKE NOTIFIED IF ANYTHING CHANGES WITH HER STATUS, FAMILY UNDERSTANDS THAT THERE IS A CHANCE SOMETHING COULD HAPPEN WHEN STAFF NOT IN ROOM. NURSES INFORM FAMILY THAT THEY CAN STAY IN ROOM, AND CAN CALL TO CHECK IN. FAMILY APPRECIATIVE. HOME AT THIS TIME pt SLEEPING.
--- NOTE | 2024-10-21 22:13 | NUR ---
PT RESTING IN BED WITH EYES CLOSED. RESPIRATIONS EVEN AND NON LABORED. SpO2 LOW 90'S WITH 1L/NC IN PLACE. HR 80'S.
--- NOTE | 2024-10-22 00:06 | NUR ---
PT RESTING WITH EYES CLOSED. OPENS EYES BRIEFLY DURING CARES. HOB ELEVATED. SpO2 MID 90'S WITH 1L/NC. HR 80'S. BED ALARM FOR SAFETY. CALL LIGHT IN REACH.
--- NOTE | 2024-10-22 02:24 | NUR ---
PT AWAKE IN BED. INCONTINENT OF URINE. UP TO BSC WITH FWW AND 1PA TO VOID. LINENS AND GOWN CHANGED. BRIEF PROVIDED. BACK TO BED, REBECCA FAIR. INCREASED COUGH AND RESPIRATIONS NOTED WITH ACTIVITY. PT ABLE TO RECOVER AFTER SITTING ON THE SIDE OF THE BED. WATER AND ICE CHIPS PROVIDED. PT ABLE TO SWALLOW SMALL AMOUNTS OF WATER, THE REST RUNS OUT ONTO A TOWEL. BEFORE LEAVING PT DENIES PAIN OR SOB. BED ALARM IN PLACE. CALL LIGHT IN REACH.
--- NOTE | 2024-10-22 04:06 | NUR ---
CALL LIGHT ANSWERED. IN TO ASSIST PT FIND CELL PHONE. FRESH WATER AND ICE CHIPS PROVIDED PER REQUEST. NO FURTHER NEEDS.
--- NOTE | 2024-10-22 05:04 | NUR ---
PT AWAKE SITTING UP IN BED. PURSE RETRIEVED FROM CLOSET PER REQUEST. PT REPORTS SHE IS COMFORTABLE AT THIS TIME. DENIES NEEDS.
--- NOTE | 2024-10-22 07:15 | NUR ---
MORNING REPORT RECIEVED. PT IS AWAKE IN BED, REQUESTING INHALER. DR FRANCISCO IN ROOM, DISCUSSING POC. PT HAS HOME INHALER IN ROOM, VERBAL TO BRING TO PHARMACY TO HAVE PLACED INTO EMAR FOR PT TO USE FOR COMFORT. PT IS COMFORTABLE THIS AM. DOES NOT APPEAR IN DISTRESS. SITTING UP ON THE SIDE OF THE BED, FAMILY AT BEDSIDE.
[2024-10-22] MEDS ORDERED: ALBUTEROL SULFATE 8 GM INH INH PRN (08:00)
--- NOTE | 2024-10-22 08:07 | NUR ---
PT REQUESTING TO USE BSC. THIS RN AND FAM VALERA IN ROOM TO ASSIST. PT USED PRN HOME INHALER PER REQUEST. AFTER COMMODE PT WENT TO RECLINER. DENIES NEEDS AT THIS TIME. CALL LIGHT IN REACH
--- NOTE | 2024-10-22 08:51 | NUR ---
PT IS SITTING IN RECLINER, FAMILY AT BEDSIDE, CALL LIGHT IN REACH.
--- NOTE | 2024-10-22 09:00 | NUR ---
Called and spoke with pts son, Sergio. Discussed plan for pt. He states he has gone home to attempt to get his sister out of bed. He believes she is unreliable and is waiting for a notary to complete a POA. I did bring to his attention the concern for staff his sister stated she has an addiction to drugs and there is concern for the sister be her cg if she is on hospice. He states this also a concern for the family. He is cont. to plan for Tabby to go to his home in [place] and has hospice there. He is discussing with family and will let me know when he arrives with his sister.
[2024-10-22] MEDS ORDERED: DEXAMETHASONE SOD PHOS 10 MG/ML VIAL IV ONE (09:45)
--- NOTE | 2024-10-22 10:05 | NUR ---
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
--- NOTE | 2024-10-22 10:41 | EKG ---
[facility] [address] [place] [address] Signed Atrial fibrillation Septal infarct , age undetermined Abnormal ECG When compared with ECG of 18-OCT-2024 02:20, Atrial fibrillation has replaced Sinus rhythm Septal infarct is now present Confirmed by AYAKA FRANCISCO MD ([id number]) on 10/22/2024 10:40:49 AM Electronically Signed By: AYAKA FRANCISCO 10/22/24 1041 PATIENT NAME: SURYAGABRIELLE Electrocardiogram DATE OF : 54 PHYSICIAN: AYAKA FRANCISCO REPORT #: [id number] REPORT IS CONFIDENTIAL AND NOT TO BE RELEASED WITHOUT AUTHORIZATION
--- NOTE | 2024-10-22 11:13 | NUR ---
PT SITTING UP IN RECLINER, FAMILY AT BEDSIDE. PT HAS NO NEEDS AT THIS TIME.
--- NOTE | 2024-10-22 11:45 | NUR ---
PATIENT TRANSFERED TO BED PER REQUEST BY THIS RN AND NANCY SKINNER. PATIENT TOLERATED TRANSFER WELL. ORANGE JUICE PROVIDED PER PATIENT REQUEST. FAMILY IN THE ROOM. FALL PRECAUTIONS IN PLACE FOR PATIENT SAFETY. NO FURTHER REQUESTS AT THIS TIME. CALL LIGHT IN REACH.
--- NOTE | 2024-10-22 12:00 | NUR ---
Update from Dr. Saleh. Pt will go with son the [place]. They are planning on speaking with the Oncologist to order Hospice.
[2024-10-22] MEDS ORDERED: LORazepam 2 MG/ML ML PO PRN (12:15)
[2024-10-22] MEDS ORDERED: LORAZEPAM2 MG/1 M1 PO (12:18)
--- NOTE | 2024-10-22 13:30 | NUR ---
Spoke with pt as she is getting ready to dc. Son's girlfriend in the room. She has been calling Hospice in their area. She would like an Rx for a wc, bed, commode. I let her know I can assist her with hospice and place and order. They will then provide the DME. She would like to use [facility] in [place]. [phone]. I will call and fax the chart. Called at spoke with Katty at Hospice. She states they have an opening on . I faxed pts face sheet, Hospice referral for terminal diagnosis, H&P, DC summary, meds, labs to [phone].
[2024-10-22] MEDS ORDERED: LORAZEPAM I2 MG/1 ML PO (13:35)
--- NOTE | 2024-10-22 14:27 | NUR ---
THIS HEAD CHOPPER IN TO TAKE OUT IV UPON REQUEST. IV TAKEN OUT, CATH INTACT AND LOOKED GOOD, RN NOTIFIED. CALL LIGHT IN REACH. NO FURTHER NEEDS AT THIS TIME.
[2024-10-22 14:30] VITALS: BP 151/97
--- NOTE | 2024-10-22 15:04 | NUR ---
THIS RN AND FAM VALERA WHEELED PT TO CAR, PT WAS ABLE TRANSFER INTO CAR WITHOUT DIFFICULTY. ATIVAN GIVEN FOR THE RIDE. ALL QUESTIONS ANSWERED.
--- NOTE | 2024-10-22 16:30 | NUR ---
Called Shivani and updated chart and referral were faxed. Gave her my number for any issues and let them know they should here from Hospice in the next day or so.
== END 2024-10-22 14:45 | disposition home or self-care (01) | DRG 392 ==
LOC: ED 02:12 → MS 02:14
PROVIDERS: Internal Medicine; ADMIT Student in an Organized Health Care Education/Training Program; ATTEND Student in an Organized Health Care Education/Training Program
DX: R13.10 Dysphagia, unspecified (principal); R59.0 Localized enlarged lymph nodes; I48.0 Paroxysmal atrial fibrillation; G25.81 Restless legs syndrome; M19.90 Unspecified osteoarthritis, unspecified site; F41.9 Anxiety disorder, unspecified; I10 Essential (primary) hypertension; E11.9 Type 2 diabetes mellitus without complications; Z66 Do not resuscitate; Z51.5 Encounter for palliative care; E83.42 Hypomagnesemia; F17.210 Nicotine dependence, cigarettes, uncomplicated; Z85.118 Personal history of other malignant neoplasm of bronchus and lung; Z79.899 Other long term (current) drug therapy; Z79.84 Long term (current) use of oral hypoglycemic drugs
CPT/HCPCS: 36415; 70491; 71045; 80053; 81001; 83735; 83880; 84484; 85025; 85379; 93005; 93010; 94640; 94667; 94668; 94760; 94762; 94799; 96361; 96374; 96375; 96376; 99285-25; G0378; J1100; J1200; J1815; J1938; J2060; J2270; J2919; J7121; J7605; Q0177; Q9967